=== PATIENT | female | born 1995 | race Caucasian/White ===

== ENCOUNTER 2021-11-20 14:55 | Emergency (ER) | payer BC, MEDICAID, SELFPAY ==
[2021-11-20 14:57] VITALS: BP 137/84; PULSE 128; RESP 16; TEMP 36.6; O2SAT 100; BMI 24.9
--- NOTE | 2021-11-20 15:50 | CT_ITS ---
INDICATION: Pain EXAMINATION: CT ABDOMEN AND PELVIS WITHOUT CONTRAST - CT Abdomen And Pelvis W/O Contrast Injection TECHNIQUE: Helically acquired images were obtained of the abdomen and pelvis without oral or IV contrast. A radiation dose optimization technique was used for this scan. IV Contrast dosage and agent: None. Oral contrast: None. Radiation Dose (provided by facility) CTDIvol (6.27 ) mGy, DLP ( 318.0) mGy-cm COMPARISON: None. FINDINGS: LOWER CHEST: Lung bases are clear. No cardiomegaly or pericardial effusion. LIVER: Normal size configuration and homogeneous density on noncontrast exam. No focal mass. GALLBLADDER AND BILIARY TREE: Small calcification noted within the gallbladder. No pericholecystic fluid. No ductal dilatation. PANCREAS: No focal cystic or solid mass. SPLEEN: Normal size without focal cystic or solid mass. ADRENAL GLANDS: No nodules. KIDNEYS AND URETERS: Normal renal size and position. No hydronephrosis. PERITONEUM: No ascites or free air. No other fluid collection. BOWEL: Normal appendix is identified. No stomach or bowel distension. No focal inflammatory change. LYMPH NODES: No enlarged mesenteric or retroperitoneal lymph nodes. VESSELS: Aorta is non-dilated. URINARY BLADDER: Unremarkable. REPRODUCTIVE ORGANS: No pelvic masses. ABDOMINAL WALL: No discrete abdominal or pelvic wall hernia. BONES: No lytic or blastic abnormality. CT/Abdomen/Pelvis without Cont IMPRESSION: 1. Single small calcification in the gallbladder. No pericholecystic fluid. No evidence of duct dilatation. 2. No evidence masses bowel obstruction abscess free fluid or free air. No evidence diverticulitis. 3. Normal appendix noted. 4. No renal calcifications or CT evidence of obstructive uropathy. Electronically Signed: Grupo Bearden MD at 19:21 EST Tel , Service support ,
--- NOTE | 2021-11-20 15:51 | EDS_ITS ---
HPI HPI - GI History of Present Illness Chief Complaint: Abd Pain Narrative Narrative: Patient presents with bilateral lower quadrant abdominal pain for the last week. She states for the past month, her bowel movements have been foamy. She went to urgent care today because she thought she had a urinary tract infection, but they told her that was negative. She has been taking [id number] medications for this. She complains of sharp, stabbing pain in the bilateral lower quadrants of her abdomen. No fevers but she has been chilled. No nausea or vomiting. Last menstrual period was 2 weeks ago. She denies any diarrhea. No exacerbating or alleviating factors to her bilateral lower quadrant abdominal pain. PFSH PFSH Home Medications clindamycin HCl 150 mg PO Q6H 11/20/21 [History Last Taken Unknown] dicyclomine 20 mg PO TID PRN #20 tab 11/20/21 [Rx Last Taken Unknown] naproxen 500 mg PO BID 11/20/21 [History Last Taken Unknown] norethindrone (contraceptive) 0.35 mg PO DAILY 11/20/21 [History Last Taken Unknown] Allergy/AdvReac Type Severity Reaction Status Date / Time Penicillins Allergy Hives Verified 11/20/21 14:56 Social History Smoking Status: Former smoker ROS ROS ED ROS Narrative Constitutional: No fever, no chills. HEENT: No sore throat. No neck pain. No loss of vision. No rhinorrhea. Cardiovascular: No chest pain. No palpitations. No pedal edema. Respiratory: No cough, no shortness of breath. Abdominal: Bilateral lower quadrant abdominal pain. No nausea. No vomiting. Genitourinary: No dysuria. No hematuria. Musculoskeletal: No myalgias. No arthralgias. Neurologic: No headaches. No dizziness. No lightheadedness. Skin: No rash. No change in color. Psychiatric: No depression. No anxiety. EXAM Physical Exam Narrative Exam Narrative: Afebrile. Vital signs noted. HEENT: Normocephalic. Atraumatic. PERRL, EOMI. Neck soft and supple. No point tenderness or step off. Cardiovascular: Regular rate and rhythm. No murmurs, rubs, or gallops apprec iated. Respiratory: No tachypnea. Lungs clear to auscultation bilaterally. Gastrointestinal: Abdomen soft, nontender, with normoactive bowel sounds. No rebound or guarding. Neurological: Awake. Alert. Nonfocal, nonlateralizing. Skin: No rash. Normal color. No pallor. Musculoskeletal: No pedal edema. Full range of motion extremities. Const Vital Signs: 11/20/21 14:57 11/20/21 18:52 11/20/21 19:36 Temperature 97.8 F Temperature Source Temporal Pulse Rate 128 H 110 H 96 Respiratory Rate 16 18 16 Blood Pressure 137/84 H 140/78 H 115/79 Blood Pressure Mean 101 98 91 Pulse Ox 100 98 99 Oxygen Delivery Method Room Air Room Air Room Air MDM MDM MDM Narrative Medical decision making narrative: Comprehensive work-up was pursued. CBC shows slightly elevated white count of 12.5, hemoglobin stable at 13.5. Platelet count is normal at 326. Sodium slightly low at 135 with a potassium of 3.3, glucose appropriately elevated at 125. LFTs are grossly unremarkable except for AST low at 11 with a normal ALT of 19. Serum is negative. Urinalysis shows no evidence of infection. CT of the abdomen pelvis shows no acute pathology. Appendix appears normal. No free fluid. At this point in time, I feel she can be discharged safely home with follow-up. Regarding her abdominal pain and cramping, she was given a prescription for dicyclomine. She states that she is having dysuria so she was referred to Dr. Sariah Mckeon with female urogynecology. Return instructions to the emergency department were reviewed. Disposition is discharged home in stable condition. Lab Data Labs: Laboratory Results - last 24 hr 11/20/21 11/20/21 11/20/21 16:20 16:20 16:20 WBC 12.5 H RBC 4.18 L Hgb 13.5 Hct 39.0 MCV 93.3 MCH 32.3 H MCHC 34.6 RDW Std Deviation 48.1 H RDW Coeff of Geraldo 14.1 Plt Count 326 MPV 10.5 Immature Gran % (Auto) 0.300 Neut % (Auto) 80.6 H Lymph % (Auto) 13.0 L [place] % (Auto) 5.9 Eos % (Auto) 0.0 Baso % (Auto) 0.2 Absolute Neuts (auto) 10.1 H Absolute Lymphs (auto) 1.63 Nucleated RBC % 0 Sodium 135 L Potassium 3.3 L Chloride 103 Carbon Dioxide 21.0 Anion Gap 11 BUN 5 L Creatinine 0.69 Estim Creat Clear Calc 104.82 Est GFR (MDRD) Af Amer 130 Est GFR (MDRD) Non-Af 107 BUN/Creatinine Ratio 7.3 L Glucose 125 H Calcium 9.1 Total Bilirubin 0.60 AST 11 L ALT 19 Alkaline Phosphatase 82 Total Protein 7.9 Albumin 4.1 Globulin 3.8 Albumin/Globulin Ratio 1.1 Serum , Qual NEGATIVE Urine Color Urine Clarity Urine pH Ur Specific [place] Urine Protein Urine Glucose (UA) Urine Ketones Urine Occult Blood Urine Nitrite Urine Bilirubin Urine Urobilinogen Ur Leukocyte Esterase Urine RBC Urine WBC Ur Squamous Epith Cells Urine Bacteria Urine Mucus 11/20/21 16:20 WBC RBC Hgb Hct MCV MCH MCHC RDW Std Deviation RDW Coeff of Geraldo Plt Count MPV Immature Gran % (Auto) Neut % (Auto) Lymph % (Auto) [place] % (Auto) Eos % (Auto) Baso % (Auto) Absolute Neuts (auto) Absolute Lymphs (auto) Nucleated RBC % Sodium Potassium Chloride Carbon Dioxide Anion Gap BUN Creatinine Estim Creat Clear Calc Est GFR (MDRD) Af Amer Est GFR (MDRD) Non-Af BUN/Creatinine Ratio Glucose Calcium Total Bilirubin AST ALT Alkaline Phosphatase Total Protein Albumin Globulin Albumin/Globulin Ratio Serum , Qual Urine Color Yellow Urine Clarity Clear Urine pH 6.0 Ur Specific [place] 1.010 Urine Protein Negative Urine Glucose (UA) Normal Urine Ketones Negative Urine Occult Blood Negative Urine Nitrite Negative Urine Bilirubin Negative Urine Urobilinogen Normal Ur Leukocyte Esterase 25 H Urine RBC 0 SEEN Urine WBC 0-5 SEEN Ur Squamous Epith Cells 0-5 SEEN Urine Bacteria 0 SEEN Urine Mucus 0 SEEN Radiography Diagnostic Testing: Clinical Impression(s) from Imaging Studies Abdomen/Pelvis CT 11/20/21 15:50 IMPRESSION: 1. Single small calcification in the gallbladder. No pericholecystic fluid. No evidence of duct dilatation. 2. No evidence masses bowel obstruction abscess free fluid or free air. No evidence diverticulitis. 3. Normal appendix noted. 4. No renal calcifications or CT evidence of obstructive uropathy. Electronically Signed: Grupo Bearden MD at 19:21 EST Tel , Service support , Discharge Plan Triage Chief Complaint: Abd Pain ED Provider: Edgar Wright Dx/Rx/DC Orders Clinical Impression: Abdominal pain, Dysuria Instructions: ED Abdominal Pain Unkn Cause Fem, ED Dysuria, Uncertain Cause (Adult) Prescriptions: New dicyclomine 20 mg tablet 20 mg PO TID PRN (Reason: cramps) Qty: 20 RF: 0 No Action clindamycin HCl 150 mg capsule 150 mg PO Q6H RF: 0 norethindrone (contraceptive) 0.35 mg tablet 0.35 mg PO DAILY RF: 0 naproxen 500 mg tablet 500 mg PO BID RF: 0 Primary Care Provider: Care Physician,No Primary Referrals: Sariah Lopez MD [STAFF PHYSICIAN] - 11/27/21 Ace Gibbs MD [STAFF PHYSICIAN] - 11/27/21 Care Physician,No Primary [Primary Care Provider] - Disposition Disposition: Home, Self Care
[2021-11-20] MEDS: 0.9% Normal Saline 1,000 ML 1000 ML IV (16:18)
[2021-11-20 16:48] LABS: Bacteria 0 SEEN /hpf (None Seen); Mucous, Urine 0 SEEN /hpf (<or=2+); Red Blood Cells-Urine 0 SEEN /hpf (0-5)
[2021-11-20 17:06] LABS: Absolute Lymphocyte Count 1.63 X10^3/uL (0.83-4.51); Absolute Neutrophil Count 10.1 X10^3/uL (2.0-7.7); Basophil# 0.03 X10^3/uL; Basophil% 0.2 % (0-1); Hemoglobin 13.5 g/dL (12.0-15.0); Lymphocyte # 1.63 X10^3/ul (0.83-4.51); Mean Corp Hgb Conc 34.6 g/dL (32-36); Mean Corpuscular Hgb 32.3 pg (27.0-32.0); Mean Corpuscular Volume 93.3 fL (81-99); Mean Platelet Vol. 10.5 fl (6.2-12.0); Monocyte# 0.74 X10^3/uL; Monocyte% 5.9 % (0-10); NRBC Flagged by Analyzer 0 % (0-5); Neutrophil # 10.06 X10^3/uL (2.7-7.7); Neutrophil % 80.6 % (47-70); Platelet Count 326 K/mm3 (150-450); RBC Distribution Width CV 14.1 % (11.6-14.6); RBC Distribution Width SD 48.1 fl (35.1-43.9); Red Blood Count 4.18 M/mm3 (4.2-5.4); White Blood Count 12.5 K/mm3 (4.4-11.0)
[2021-11-20 17:16] LABS: Color, Urine Yellow (Yellow); Glucose, Dipstick Normal (Normal); Ketone-Dipstick Negative (Negative); Leukocyte Esterase-Dipstick 25 /ul (Negative); Nitrite-Dipstick Negative (Negative); Occult Blood-Urine Negative /ul (Negative); Protein-Dipstick Negative (Negative); Urine Bilirubin Dipstick Negative (Negative); Urine Clarity Clear (Clear); Urine Urobilinogen Normal (Normal)
[2021-11-20 17:19] LABS: Internal QC Validated? YES +Cl - CLEAR BKGD; Pregnancy, Serum, hCG Quali. NEGATIVE Negative
--- NOTE | 2021-11-20 17:21 | CM.ED ---
SW Note Referral Source: Case Find Referral Reason: No Primary Care Physician (PCP) SW reviewed chart and noted that patient has no PCP. SW provided patient with list of [facility] Physician List for reference. SW also provided patient with handout ?Where to go When?. No other issues or concerns voiced at this time. SW remains available for any additional needs. Plan: Provided patient with PCP information Sheree MONROY
[2021-11-20 17:23] LABS: Squamous Epithelial Cells - UA 0-5 SEEN /hpf (5-10); White Blood Cells 0-5 SEEN /hpf (0-5)
[2021-11-20 17:25] LABS: ALB/GLOB Ratio 1.1 RATIO (0.9-2.4); AST(SGOT) 11 U/L (15-37); Alanine Aminotransfer ALT/SGPT 19 U/L (13-56); Albumin, Serum 4.1 g/dL (3.2-5.0); Alkaline Phosphatase 82 U/L (45-117); Anion Gap 11 (5-15); BUN 5 mg/dL (7-18); BUN/Creat Ratio 7.3 RATIO (10-20); Calcium,Total 9.1 mg/dL (8.5-10.1); Chloride 103 mmol/L (98-107); Creatinine, Serum 0.69 mg/dL (0.55-1.02); EST Glomerular Filtration Rate 107 mL/min (>60); Est Glom Filt Rate - Afr Amer 130 mL/min (>60); Estimated Creatinine Clearance 104.82 ml/min; Globulin 3.8 g/dL (2.2-4.2); Glucose 125 mg/dL (74-106); Potassium 3.3 mmol/L (3.5-5.1); Protein, Total 7.9 g/dL (6.4-8.2); Sodium Level 135 mmol/L (136-145)
[2021-11-20 18:52] VITALS: BP 140/78; PULSE 110; RESP 18; O2SAT 98
[2021-11-20 19:36] VITALS: BP 115/79; PULSE 96; RESP 16; O2SAT 99
[2021-11-20 19:51] VITALS: BP 119/73; PULSE 91; RESP 15; O2SAT 99
== END 2021-11-20 19:52 | disposition home or self-care (01) ==
PROVIDERS: Emergency Provider Emergency Medicine
DX: R10.31 Right lower quadrant pain (principal); R10.32 Left lower quadrant pain; R30.0 Dysuria; Z79.1 Long term (current) use of non-steroidal anti-inflammatories (NSAID); Z87.891 Personal history of nicotine dependence
CPT/HCPCS: 74176; 80053; 81001; 84703; 85025; 96360; 96361; 99284; J7030; A4216

== ENCOUNTER 2022-04-08 13:11 | Emergency (ER) | payer MEDICAID, SELFPAY ==
[2022-04-08 13:12] VITALS: BP 208/182; PULSE 134; RESP 17; TEMP 38.3; O2SAT 99; BMI 27.4
[2022-04-08 13:14] VITALS: O2SAT 98
[2022-04-08 13:45] LABS: Color, Urine Yellow (Yellow); Glucose, Dipstick Normal (Normal); Ketone-Dipstick 15 mg/dl (Negative); Leukocyte Esterase-Dipstick Negative /ul (Negative); Nitrite-Dipstick Negative (Negative); Occult Blood-Urine Negative /ul (Negative); Protein-Dipstick 15 mg/dl (Negative); Urine Bilirubin Dipstick Negative (Negative); Urine Clarity Clear (Clear); Urine Urobilinogen Normal (Normal)
[2022-04-08 13:49] LABS: Internal QC Validated? YES +Cl - CLEAR BKGD; Pregnancy, Urine Negative Negative
[2022-04-08 14:07] LABS: White Blood Cells 0-5 SEEN /hpf (0-5)
[2022-04-08 14:08] LABS: Squamous Epithelial Cells - UA 0-5 SEEN /hpf (5-10)
[2022-04-08 14:09] LABS: Bacteria 1+ /hpf (None Seen); Mucous, Urine 1+ /hpf (<or=2+); Red Blood Cells-Urine 0 SEEN /hpf (0-5)
--- NOTE | 2022-04-08 14:15 | CT_ITS ---
STUDY: CT ABDOMEN AND PELVIS WITH CONTRAST REASON FOR EXAM: Female, 27 years old. Lower diffuse abdominal pain. Back pain and chills. RADIATION DOSAGE (If Supplied By Facility): CTDIvol = ( 9.61 ) mGy, DLP = ( 332.21 ) mGycm TECHNIQUE: Transaxial images were obtained from the dome of the diaphragm to the symphysis pubis without oral contrast. 100 CC ISOVUE 300 was administered. Sagittal and coronal images were reconstructed. Individualized dose optimization techniques were used for this CT. COMPARISON: Comparison is made with prior study dated 11/20/2021. FINDINGS: The visualized lung bases are unremarkable. The visualized portions of the heart are within normal limits. Normal liver. Normal gallbladder and extrahepatic biliary system. Normal spleen. Normal pancreas. Normal bilateral adrenal glands. Normal right kidney. Normal left kidney. Normal visualized stomach. Normal small intestine. Normal colon. The appendix is visualized and appears normal. Normal abdominal aorta. Normal inferior vena cava. Normal retroperitoneum. Normal urinary bladder. Small follicles are seen in the right ovary. Normal abdominal wall. Normal osseous structures. CT/Abdomen/Pelvis W IV Cont ONLY IMPRESSION: Normal enhanced CT of the abdomen and pelvis. Electronically Signed: Oliverio Dawkins MD at 15:46 EDT ,
[2022-04-08 14:46] LABS: Absolute Lymphocyte Count 1.29 X10^3/uL (0.83-4.51); Absolute Neutrophil Count 9.8 X10^3/uL (2.0-7.7); Basophil# 0.02 X10^3/uL; Basophil% 0.2 % (0-1); Hematocrit 38.7 % (37-47); Lymphocyte # 1.29 X10^3/ul (0.83-4.51); Lymphocyte % 10.8 % (19-41); Mean Corp Hgb Conc 33.6 g/dL (32-36); Mean Corpuscular Hgb 31.9 pg (27.0-32.0); Mean Corpuscular Volume 94.9 fL (81-99); Mean Platelet Vol. 10.2 fl (6.2-12.0); Monocyte# 0.75 X10^3/uL; Monocyte% 6.3 % (0-10); NRBC Flagged by Analyzer 0 % (0-5); Neutrophil # 9.79 X10^3/uL (2.7-7.7); Neutrophil % 82.2 % (47-70); Platelet Count 249 K/mm3 (150-450); RBC Distribution Width CV 13.1 % (11.6-14.6); RBC Distribution Width SD 45.1 fl (35.1-43.9); Red Blood Count 4.08 M/mm3 (4.2-5.4); White Blood Count 11.9 K/mm3 (4.4-11.0)
[2022-04-08 15:03] LABS: ALB/GLOB Ratio 0.9 RATIO (0.9-2.4); AST(SGOT) 13 U/L (15-37); Alanine Aminotransfer ALT/SGPT 18 U/L (13-56); Albumin, Serum 3.6 g/dL (3.2-5.0); Alkaline Phosphatase 92 U/L (45-117); Anion Gap 7 (5-15); BUN 5 mg/dL (7-18); BUN/Creat Ratio 7.2 RATIO (10-20); Chloride 99 mmol/L (98-107); EST Glomerular Filtration Rate 105 mL/min (>60); Est Glom Filt Rate - Afr Amer 128 mL/min (>60); Globulin 4.2 g/dL (2.2-4.2); Glucose 104 mg/dL (74-106); Lipase 58 U/L (73-393); Potassium 3.2 mmol/L (3.5-5.1); Protein, Total 7.8 g/dL (6.4-8.2); Sodium Level 132 mmol/L (136-145)
--- NOTE | 2022-04-08 16:42 | EX.ED.DYSGE1 ---
HPI History of Present Illness Chief Complaint: Back Narrative Narrative: Patient presents with abdominal pain and back pain for the past few days. No vaginal discharge no dyspareunia no vaginal bleeding LMP was about a week ago. She has no dysuria or hematuria. She is denying . She is presenting with quite a bit of pain when she turns or twists. No midline back pain. She has a cough and congestion also. PFSH PFSH Medical History no medical history Home Medications clindamycin HCl 150 mg PO Q6H 11/20/21 [History Last Taken Unknown] dicyclomine 20 mg PO TID PRN #20 tab 11/20/21 [Rx Last Taken Unknown] naproxen 500 mg PO BID 11/20/21 [History Last Taken Unknown] norethindrone (contraceptive) 0.35 mg PO DAILY 11/20/21 [History Last Taken Unknown] hydrocodone-acetaminophen 1 tab PO Q8H PRN 3 Days #10 tab 04/08/22 [Rx Last Taken Unknown] Allergy/AdvReac Type Severity Reaction Status Date / Time Penicillins Allergy Hives Verified 04/08/22 13:14 Surgical History no surgical history Social History Smoking Status: Former smoker ROS ROS ED ROS Narrative Past medical history: Reviewed, normal Medications: Reviewed Social history: Noncontributory Review of systems: All systems negative except as indicated General: Some chills present Eyes: No visual changes ENT: Some upper airway congestion Neck: No neck pain Cardiovascular: No chest pain Respiratory: No shortness of breath or cough Gastrointestinal: Right-sided abdominal pain Genitourinary: No dysuria, no vaginal bleeding no dyspareunia, no vaginal discharge. Musculoskeletal: Right-sided back pain mostly in the right flank region Skin: No rash Neurological: No memory loss, confusion or any focal weakness Psych: No recent behavioral changes Hematologic: No easy bleeding or easy bruising EXAM Physical Exam Narrative Exam Narrative: Physical exam General: Well nourished, Well developed, No Acute Distress Head: Normocephalic, Atraumatic Eyes: Conjunctiva not pale ENT: Moist mucous membranes. Some postnasal drip and some rhinorrhea present Neck: Supple, Nontender, No lymphadenopathy Cardiovascular: Regular rate, Regular rhythm Respiratory: No distress, CTA bilaterally Abdomen: Soft, there is right sided abdominal pain, no guarding or rebound pain is higher than the pelvis its near McBurney's point. Back: Nontender, Normal Inspection. She has some CVA tenderness on the right and right paraspinal tenderness. There is no spinal tenderness. The back pain is quite reproducible. Extremities: Nontender, No edema Skin: Normal color, No rash Neurological: Alert, Normal Strength, Normal Sensation Psychological: Normal affect Const Vital Signs: 04/08/22 13:12 Temperature 101 F H Temperature Source Temporal Pulse Rate 134 H Respiratory Rate 17 Blood Pressure 208/182 H Blood Pressure Mean 190 Pulse Ox 99 Oxygen Delivery Method Room Air MDM MDM MDM Narrative Medical decision making narrative: Patient has slight leukocytosis, otherwise normal urinalysis, the CT abdomen and pelvis with IV contrast does not show any abnormality. I will add a pelvis ultrasound, the fever may be secondary to upper respiratory infection, she does tell me that her children do have colds. She does have some rhinorrhea present on exam. Regardless I will also check for COVID and influenza. The ultrasound will be reviewed by the oncoming ED physician. Lab Data Labs: Laboratory Results - last 24 hr 04/08/22 04/08/22 04/08/22 13:22 14:30 14:30 WBC 11.9 H RBC 4.08 L Hgb 13.0 Hct 38.7 MCV 94.9 MCH 31.9 MCHC 33.6 RDW Std Deviation 45.1 H RDW Coeff of Geraldo 13.1 Plt Count 249 MPV 10.2 Immature Gran % (Auto) 0.500 Neut % (Auto) 82.2 H Lymph % (Auto) 10.8 L [place] % (Auto) 6.3 Eos % (Auto) 0.0 Baso % (Auto) 0.2 Absolute Neuts (auto) 9.8 H Absolute Lymphs (auto) 1.29 Nucleated RBC % 0 Sodium 132 L Potassium 3.2 L Chloride 99 Carbon Dioxide 26.0 Anion Gap 7 BUN 5 L Creatinine 0.70 Estim Creat Clear Calc 102.40 Est GFR (MDRD) Af Amer 128 Est GFR (MDRD) Non-Af 105 BUN/Creatinine Ratio 7.2 L Glucose 104 Calcium 9.0 Total Bilirubin 0.80 AST 13 L ALT 18 Alkaline Phosphatase 92 Total Protein 7.8 Albumin 3.6 Globulin 4.2 Albumin/Globulin Ratio 0.9 Lipase 58 L Urine Color Yellow Urine Clarity Clear Urine pH 6.0 Ur Specific [place] 1.010 Urine Protein 15 H Urine Glucose (UA) Normal Urine Ketones 15 H Urine Occult Blood Negative Urine Nitrite Negative Urine Bilirubin Negative Urine Urobilinogen Normal Ur Leukocyte Esterase Negative Urine RBC 0 SEEN Urine WBC 0-5 SEEN Ur Squamous Epith Cells 0-5 SEEN Urine Bacteria 1+ Urine Mucus 1+ Urine Test Negative Radiography Diagnostic Testing: Clinical Impression(s) from Imaging Studies Abdomen/Pelvis CT 04/08/22 14:15 IMPRESSION: Normal enhanced CT of the abdomen and pelvis. Electronically Signed: Oliverio Dawkins MD at 15:46 EDT , Discharge Plan Triage Chief Complaint: Back ED Provider: Phoenix Jc Dx/Rx/DC Orders Clinical Impression: Abdominal pain, Back pain, Fever Instructions: Abdominal Pain, ED Fever Control (Adult) Prescriptions: New hydrocodone-acetaminophen 5-325 mg tablet 1 tab PO Q8H PRN (Reason: pain) 3 Days Qty: 10 RF: 0 No Action clindamycin HCl 150 mg capsule 150 mg PO Q6H RF: 0 norethindrone (contraceptive) 0.35 mg tablet 0.35 mg PO DAILY RF: 0 naproxen 500 mg tablet 500 mg PO BID RF: 0 dicyclomine 20 mg tablet 20 mg PO TID PRN (Reason: cramps) Qty: 20 RF: 0 Primary Care Provider: Care Physician,No Primary Referrals: Care Physician,No Primary [Primary Care Provider] - 2 Days Disposition Disposition: Home, Self Care
--- NOTE | 2022-04-08 16:52 | US_ITS ---
STUDY: ULTRASOUND TRANSVAGINAL CLINICAL: Female, 27 years old. pelvic pain TECHNIQUE: Axial and sagittal ultrasound images of the pelvis were obtained transvaginally. COMPARISON: CT scan earlier same day FINDINGS: The uterus measures 8.5 x 5.5 x 3.9 cm. Endometrial stripe measures 0.6 cm in thickness. There is no discrete uterine fibroid. Tiny echogenic foci are noted adjacent to the endometrial stripe, likely calcifications. The right ovary measures 2.8 x 1.7 x 1.6 cm and the left ovary measures 3.3 x 1.8 x 3.5 cm. No focal ovarian lesion is seen on either side. Blood flow to the ovaries was documented. There is no adnexal mass. Trace free fluid is noted in the cul-de-sac, likely physiologic. US/Transvaginal Non- IMPRESSION: No discrete uterine fibroid. Unremarkable ovaries. No adnexal mass. Electronically Signed: Lukasz Leon MD at 18:47 EDT ,
[2022-04-08 17:11] VITALS: BP 133/89; PULSE 127; RESP 16; O2SAT 100
--- NOTE | 2022-04-08 17:11 | CM.ED ---
Social Work Note Reason for Referral: Case Find, No PCP SW met with pt and introduced self and role at [facility]. Pt is alert and orientated. Pt confirms she doesn't have a PCP. SW provided pt with PCP list and Where To Go and When to Go Brochure. SW also overheard pt stating that she has children. SW asked pt if are children are currently being cared for while pt is at [facility]. Pt states that her children are with their father Mauri Cool while pt is at [facility]. Pt denied additional needs or concerns at this time. 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
[2022-04-08] MEDS: oxyCODONE 5 MG Tablet PO (17:20)
[2022-04-08] MEDS: Ketorolac 15 MG/ML Vial IV (17:20)
[2022-04-08 19:06] VITALS: RESP 17; TEMP 36.6; O2SAT 98
== END 2022-04-08 19:08 | disposition home or self-care (01) ==
PROVIDERS: Emergency Medicine; Emergency Provider Emergency Medicine; Visit Provider Emergency Medicine
DX: R10.9 Unspecified abdominal pain (principal); Z87.891 Personal history of nicotine dependence; M54.9 Dorsalgia, unspecified; Z79.899 Other long term (current) drug therapy
CPT/HCPCS: 74177; 76830; 80053; 81001; 81025; 83690; 85025; 87428; 93976; 99284; Q9967; A4216